=== PATIENT | female | born 1975 | race Caucasian/White ===

== ENCOUNTER → 2021-10-07 14:04 | Outpatient (BNVA) | payer MEDICAID, SELFPAY | PROVIDERS: PCP Family Medicine; Visit Provider Physician Assistant Surgical | DX: E66.01 Morbid (severe) obesity due to excess calories (principal) | CPT/HCPCS: 99202 ==

== ENCOUNTER 2021-10-26 07:43 | Outpatient (REF) | payer MEDICAID, SELFPAY ==
--- NOTE | ~2021-10-26 | XR_ITS ---
EXAMINATION: XR CHEST CLINICAL INFORMATION: Morbid to severe obesity due to excess calories COMPARISON: None TECHNIQUE: 2 views of the chest were obtained. FINDINGS: No significant abnormality is noted involving the heart, lungs, mediastinum, bony thorax or soft tissues. XR/XR chest 2V IMPRESSION: Unremarkable chest examination.
--- NOTE | 2021-10-26 07:57 | ECG_ITS ---
Test Reason : e66.01 Blood Pressure : / mmHG Vent. Rate : 067 BPM Atrial Rate : 067 BPM P-R Int : 142 ms QRS Dur : 094 ms QT Int : 404 ms P-R-T Axes : 005 009 018 degrees QTc Int : 426 ms Normal sinus rhythm Inferior-posterior infarct , age undetermined Abnormal ECG No previous ECGs available Referred By: Danial Patterson Electronically Signed By:INDY HEREDIA
[2021-10-26 08:11] LABS: MANUAL DIFF FLAG NO
[2021-10-26 08:44] LABS: Basophils Percent Auto 0.6 % (0-2); Eosinophils Absolute Auto 0.2 X10*3/uL (0.0-0.4); Eosinophils Percent Auto 3.7 % (0-4); Hematocrit 43.3 % (37.0-47.0); Hemoglobin 14.2 g/dl (12.0-16.0); Imm Gran Abs Auto 0.01 X10*3/uL (0.00-0.03); Imm Gran Pct Auto 0.2 % (0.0-0.4); Lymphocytes Absolute Auto 2.3 X10*3/uL (1.2-4.9); Lymphocytes Percent Auto 35.8 % (20-40); Mean Corpuscular HGB Conc 32.8 g/dl (31.0-35.0); Mean Corpuscular Hemoglobin 30.7 pg (27.0-33.0); Mean Corpuscular Volume 93.5 fL (80.0-98.0); Mean Platelet Volume 11.2 fL (9.4-12.3); Monocytes Absolute Auto 0.4 X10*3/uL (0.1-1.2); Monocytes Percent Auto 6.6 % (2-11); Neutrophils Absolute Auto 3.4 x10*3/uL (2.0-8.3); Neutrophils Percent Auto 53.1 % (45-73); Platelet Count 282 X10*3/uL (160-400); Red Blood Count 4.63 X10*6/uL (4.20-5.50); Red Cell Distribution Width 12.3 % (11.0-16.0); White Blood Count 6.5 X10*3/uL (4.8-10.8)
[2021-10-26 08:53] LABS: Estimated Average Glucose 120 mg/dL; Hemoglobin A1C 150.4568 umol/L; Hemoglobin A1c % 5.8 %
[2021-10-26 09:06] LABS: Alanine Aminotransferase 25 U/L (0-31); Alkaline Phosphatase 79 U/L (39-117); Anion Gap 13 (12-20); Aspartate Amino Transferase 19 U/L (5-31); Bilirubin Total 0.4 mg/dL (0.0-1.0); Blood Urea Nitrogen 14 mg/dL (9-16); C Reactive Protein 0.29 mg/dL (< or = 0.50); Calcium 9.6 mg/dL (8.4-10.2); Carbon Dioxide 29 mmol/L (22-29); Chloride 106 mmol/L (96-108); Cholesterol 242 mg/dL; Estimated Glomerular Filt Rate 54; Glucose Random 123 mg/dL (60-115); HDL Cholesterol 45 mg/dL; Iron 84 mcg/dL (30-160); LDL Cholesterol Calculated 165 mg/dl; Percent Iron Saturation 28 % (15-50); Sodium 144 mmol/L (135-145); Total Iron Binding Capacity 305 mcg/dL (228-428); Total Protein 7.2 g/dL (6.5-8.0); Triglycerides 160 mg/dL; Unsaturated Iron Binding 221 ug/dL
[2021-10-26 09:29] LABS: Ferritin 130 ng/mL (10-250); Insulin 25 uU/mL (2-29); TSH reflex Free T4 4.25 uIU/mL (0.32-4.0); Vitamin D 25-OH Total 17.5 ng/mL (>30)
[2021-10-26 10:13] LABS: Free T4 (Free Thyroxine) 0.89 ng/dL (0.71-1.85)
[2021-10-26 10:15] LABS: Folate 7.2 ng/mL (> or = 4.0); Vitamin B12 319 pg/mL (200-900)
[2021-10-27 11:57] LABS: Calcium (PTHI) 9.5 mg/dL (8.6-10.2); PTHI 50 pg/mL (16-77)
[2021-10-30 12:36] LABS: Zinc 73 mcg/dL (60-130)
[2021-10-31 17:06] LABS: Vitamin A 50 mcg/dL (38-98)
[2021-11-03 06:17] LABS: Vitamin B1 10 nmol/L (8-30)
== END 2021-10-26 07:44 | disposition home or self-care (01) ==
LOC: HO.XRAY 07:43
PROVIDERS: PCP Family Medicine; Visit Provider Physician Assistant Surgical
DX: E66.01 Morbid (severe) obesity due to excess calories (principal)
CPT/HCPCS: 36415; 71046; 80053; 80061; 82306; 82607; 82728; 82746; 83036; 83525; 83540; 83970; 84425; 84439; 84443; 84590; 84630; 85025; 86140; 93005

== ENCOUNTER → 2021-11-01 09:52 | Outpatient (BNVA) | payer MEDICAID, SELFPAY | PROVIDERS: PCP Family Medicine; Visit Provider Physician Assistant Surgical | DX: E66.01 Morbid (severe) obesity due to excess calories (principal); Z11.0 Encounter for screening for intestinal infectious diseases; Z68.41 Body mass index [BMI] 40.0-44.9, adult | CPT/HCPCS: 83013; 99211; 99212 ==

== ENCOUNTER 2021-11-01 16:41 | Outpatient (REF) | payer MEDICAID, SELFPAY ==
[2021-11-02 13:20] LABS: H Pylori Breath Test Negative (Negative)
== END 2021-11-01 16:42 | disposition home or self-care (01) ==
LOC: HO.LNP 16:41
PROVIDERS: Visit Provider Physician Assistant Surgical
DX: E66.01 Morbid (severe) obesity due to excess calories (principal)
CPT/HCPCS: 83013

== ENCOUNTER → 2021-11-09 14:02 | Outpatient (BNVA) | payer MEDICAID, SELFPAY | PROVIDERS: PCP Family Medicine; Referring Provider Physician Assistant Surgical; Visit Provider Dietitian, Registered | DX: E66.01 Morbid (severe) obesity due to excess calories (principal) | CPT/HCPCS: 97802 ==

== ENCOUNTER → 2021-11-25 13:00 | Outpatient (BNVA) | payer OTHER, SELFPAY | PROVIDERS: PCP Family Medicine; Referring Provider Physician Assistant Surgical; Visit Provider Counselor Mental Health | DX: F43.20 Adjustment disorder, unspecified (principal); E66.01 Morbid (severe) obesity due to excess calories | CPT/HCPCS: 90791 ==

== ENCOUNTER → 2021-11-26 09:09 | Outpatient (REF) | payer MEDICAID, SELFPAY ==
--- NOTE | ~2021-11-26 | NM_ITS ---
Exercise Myocardial perfusion study Indication: Abnormal EKG with preoperative cardiovascular risk stratification Technique: The patient was brought in for an exercise perfusion study on 11/26/2021. Patient performed exercise as per Dayday protocol and was injected 35 mCi of sestamibi was given intravenously one target HR was achieved. Images were obtained using the SPECT gamma camera interlaced with the gating device. Images were obtained in supine position. Resting perfusion study was performed on 11/29/2021. Patient was administered 35 mCi of sestamibi intravenously at rest. Images were then obtained in supine position. Images obtained with and without CT attenuation. Total DLP 129 mGy-cm. Images were processed with the software and compared side to side in short axis, horizontal long axis and vertical long axis views. Findings: The stress perfusion study showed non attenuated images show normal uptake of radiotracer in all segments of LV myocardium. Attenuation corrected images show minimal thinning of the apex of the LV myocardium.. The gated study shows normal LV systolic function with calculated LVEF of 68%. LV cavity is normal in size. The gated study shows normal systolic wall thickening and contraction of all segments. There is no transient ischemic dilation. Resting study shows no change in perfusion pattern compared to stress perfusion study. Gating at rest reveals normal systolic wall motion with ejection fraction at 71%. The findings are consistent with normal myocardial perfusion. NM/NM shabbir perf SPECT rest & str Impression: 1. Normal myocardial perfusion 2. Gated LVEF is 68% 3. Transient ischemic dilatation not present Stress EKG is negative for ischemia
--- NOTE | 2021-11-26 09:13 | CA_ITS ---
Acquisition Time: 2021-11-26 10:00:32 Total Exercise Time: 00:06:00 Test Indications: ABN EKG Medications: SEE CHART Protocol: ISA Max HR: 173 BPM 99% of Pred: 174 BPM Max BP: 132/080 mmHG Max Work Load: 7.0 METS Exercise stress test with exercise 6 min of Isa protocol, without anginal symptoms, with isolated PVCs, with normotensive response to exercise, without EKG changes meeting criteria for ischemia. Nuclear images pending. Test reviewed with Dr Bridges Note: test original ordered as a pharm nuclear stress test however patient reports she is able to exercise on treadmill. Test changed to exercise nuclear stress test. Referred By: Vasiliy Arango Overread By: JADON DANIEL
== END ==
LOC: HO.CARD 09:09
PROVIDERS: Visit Provider Surgery
DX: R94.31 Abnormal electrocardiogram [ECG] [EKG] (principal)
CPT/HCPCS: 78452; 93017; A9500

== ENCOUNTER 2021-12-06 08:03 | Outpatient (REF) | payer MEDICAID, SELFPAY ==
--- NOTE | ~2021-12-06 | FL_ITS ---
EXAMINATION: XR FLUOROSCOPY UPPER GI WITH AIR CLINICAL INFORMATION: Obesity COMPARISON: None TECHNIQUE: Upper GI was performed using thin and thick barium and effervescent granules. FINDINGS: Esophageal motility is normal. No hernia or reflux is seen. The stomach and duodenum are normal-appearing. No fold thickening, mass, ulcer or stricture is seen. FLUOROSCOPY TIME: 0.4 minutes DOSE AREA PRODUCT: 5.7 jacobs per centimeter squared. 19 saved fluoroscopic images. FL/FL upper GI w air IMPRESSION: Unremarkable examination.
--- NOTE | ~2021-12-06 | US_ITS ---
EXAMINATION: US COMPLETE ABDOMEN WITH LIVER ELASTOGRAPHY CLINICAL INFORMATION: Morbid obesity. COMPARISON: None. TECHNIQUE: Real-time imaging of the abdominal viscera. Noninvasive ultrasound liver fibrosis assessment is performed using Roland ElastPQ point quantification shear wave elastography (2D-SWE) with a C5-2 MHz transducer. Multiple elastography samples are obtained. FINDINGS: PANCREAS: Normal. The visualized pancreatic head and body are normal in appearance. The remainder of the pancreas is obscured from visualization by the overlying bowel gas. ABDOMINAL AORTA: The proximal, middle, and distal aortic segments are normal in caliber. INFERIOR VENA CAVA: Visualized portions are normal. LIVER: The liver demonstrates normal size, contour and is generally increased echogenicity, with pericholecystic sparing. No focal mass lesion or intrahepatic biliary duct dilatation. There are scattered benign, calcified granulomas incidentally noted. The right lobe measures 15.8 cm in length. The left lobe measures 10.4 cm in length. Portal flow is towards the liver (hepatopetal). Shear wave liver elastography median stiffness is 1.89 m/s (reference: normal median stiffness is 1.3 m/s or less). IQR/median stiffness to assess sampling precision is 0.15 (reference: good quality data set is IQR/median stiffness of 0.15 or less). GALLBLADDER: Normal. The gallbladder is physiologically distended without evidence of stones, sludge, polyps, wall thickening or pericholecystic fluid. COMMON BILE DUCT: Normal in caliber measuring 0.2 cm in diameter. RIGHT KIDNEY: Normal. No hydronephrosis. No renal calculi or focal parenchymal lesions. The kidney measures 13.0 cm in maximum dimension. LEFT KIDNEY: Normal. No hydronephrosis. No renal calculi or focal parenchymal lesions. The kidney measures 11.8 cm in maximum dimension. SPLEEN: Normal. The spleen measures 11.1 cm in maximum dimension. FREE FLUID: None. US/US abdomen comp w elastography IMPRESSION: 1. There is generalized increase in hepatic echotexture, consistent with fatty infiltration or hepatocellular disease. Please correlate clinically. Characteristic pericholecystic sparing favors fatty infiltration. No focal hepatic mass or intrahepatic biliary dilatation is seen. 2. Liver elastography: Measurements are suggestive of compensated advanced chronic liver disease but need further test for confirmation. REFERENCE: Society of Radiologists in Ultrasound Liver Stiffness Thresholds (2020): LIVER STIFFNESS THRESHOLDS: *Liver Stiffness equal or less than 1.3 m/s: High probability of being normal. *Liver Stiffness less than 1.7 m/s: In the absence of other known clinical signs, rules out compensated advanced chronic liver disease. *Liver Stiffness 1.7-2.1 m/s: Suggestive of compensated advanced chronic liver disease but need further test for confirmation. *Liver Stiffness over 2.1 m/s: Rules in compensated advanced chronic liver disease. *Liver Stiffness over 2.4 m/s: Suggestive of clinically significant portal hypertension. QUALITY OF DATA SET: *IQR/Median value equal or less than 0.15 implies a quality data set. *IQR/Median value over 0.15 implies a poor quality data set. SIGNIFICANT CHANGE FROM PRIOR EXAM: Significant change if liver stiffness measurement is 10% or greater from prior exam. OTHER CONSIDERATIONS: The stage of liver fibrosis may be overestimated in the setting of acute hepatitis, liver inflammation, elevated liver function tests, hepatic vascular congestion, obstructive cholestasis, non-fasting state, and infiltrative diseases such as amyloidosis and lymphoma. In some patients with NAFLD, the liver stiffness thresholds for compensated advanced chronic liver disease may be lower. In causes other than viral hepatitis and NAFLD, liver stiffness thresholds are not well established.
== END 2021-12-06 08:04 | disposition home or self-care (01) ==
LOC: HO.US 08:03
PROVIDERS: Visit Provider Physician Assistant Surgical
DX: E66.01 Morbid (severe) obesity due to excess calories (principal)
CPT/HCPCS: 74246; 76705; 76981

== ENCOUNTER → 2021-12-22 14:23 | Outpatient (REF) | payer MEDICAID, SELFPAY ==
--- NOTE | 2021-12-22 14:25 | CA_ITS ---
Transthoracic Echocardiogram Patient (Last, First, Middle): Hoda Delarosa L Gender: Female Date of : 1975 Age: 46 Procedure Date: 12/22/2021 Procedure Type: Transthoracic Echocardiogram Location: OP Height: 162.56 cm Weight: 103.87 kg BSA: 2.07 m2 Heart Rate: 74 bpm BP: 168 / 80 mmHg Process Control Tech: SB Referring MD: Vasiliy Arango MD Symptoms: R94.31 - Abnormal electrocardiogram [ECG] [EKG] Study Quality: Adequate w contrast ECG Rhythm: Sinus Conclusions: - The left ventricular systolic function is normal. The visually estimated ejection fraction is between 55-60%. - No obvious valvular pathology seen on this study. Findings Procedure Information Contrast agent, definity, is being given per protocol without apparent complications. Left Ventricle Normal left ventricular cavity size. There is normal left ventricular wall thickness. The left ventricular systolic function is normal. The visually estimated ejection fraction is between 55-60%. There is no evidence of regional wall motion abnormalities. Diastolic function is normal for age. Right Ventricle Normal right ventricular cavity size. There is low normal right ventricular systolic function. Atria Both atria are normal in size. Aortic Valve There is a normal trileaflet aortic valve. There is no aortic valve stenosis. There is no aortic valve regurgitation. Mitral Valve The mitral valve appears normal. There is no mitral valve regurgitation. There is no mitral valve stenosis. Pulmonic Valve The pulmonic valve is likely normal. Tricuspid Valve There is trace tricuspid valve regurgitation. There is no evidence of pulmonary hypertension. Great Vessels The asc aorta is normal in size. Venous The inferior vena cava is normal in size and collapses greater than 50% with inspiration. Pericardium/Pleural There is no evidence of pericardial effusion. Prior Study Comparison No prior study available for comparison. Recommendations, Care & Conclusions No obvious valvular pathology seen on this study. Measurements 2D Linear Measurements IVSd: 1.03 0.6-0.9/0.6-1.0 cm LVIDd: 4.62 3.9-5.3/4.2-5.9 cm LVIDd Index: 2.23 2.4-3.2/2.2-3.1 cm/m2 LVIDs: 2.78 2.0-3.6 cm LVPWd: 1.02 0.7-1.1 cm LA Diam: 4.00 2.7-3.8/3.0-4.0 cm LAIDs Index: 1.93 1.5-2.3 cm/m2 LV Mass: 206.06 67-162/88-224 g LV Mass Index: 99.54 43-95/49-115 g/m2 LVOT Diam: 2.10 3.0+(-)1.3 cm 2D Systolic Function EF 4C: 58.80 >55% EF 2C: 57.90 >55% EF BiP: 58.20 >55% Mitral Valve MV Pk E: 0.74 MV PK A: 0.55 MV Decel Time: 129.00 E/A: 1.40 E'Lateral: 9.68 E'Medial: 7.07 E/E' Med: 10.50 E/E' Lat: 7.70 PHT: 38.00 MVA PHT: 5.79 Decel [place]: 5.75 Aortic Valve AoV Pk Skyler: 1.27 AoV Mn Skyler: 0.96 AoV VTI: 0.27 AoV Pk Grad: 6.00 Aov Mn Grad: 4.00 [place] Cont.VTI: 3.00 LVOT LVOT Pk Skyler: 1.19 LVOT Mn Skyler: 0.81 LVOT VTI: 0.24 LVOT Pk Grad: 6.00 LVOT Mn Grad: 3.00 LVOT Diam: 2.10 LVOT Area: 3.46 Diastolic Function MV Pk E: 0.74 MV Pk A: 0.55 E/A: 1.40 E'Medial: 7.07 E/E' Med: 10.50 E' Laterial: 9.68 E/E' Lat: 7.70 Right Ventricle TAPSE (mm): 15.30 TVS' Skyler: 12.30 Tricuspid Valve TR Pk Skyler: 2.24 TR Pk Grad: 20.00 RA Press: 3.00 RVSP: 23.00 Great Vessels Aorta Sinus of Valsalva: 3.30 2.0-3.5 cm Ao Asc: 3.60 2.1-3.4 cm Pulmonary Veins Pulm Vein S/D 1.10 Pulmonary Valve PV Pk Skyler: 0.80 Peak PV Grad: 3.00 Updated in Other Vendor System with Status of Final Jone Tompkins MD electronically signed on 12/23/2021 11:41:26 AM with status of Final
== END ==
LOC: HO.CARD 14:23
PROVIDERS: Visit Provider Surgery
DX: Z01.818 Encounter for other preprocedural examination (principal); R94.31 Abnormal electrocardiogram [ECG] [EKG]
CPT/HCPCS: 93306; Q9957

== ENCOUNTER 2022-01-11 06:07 | Inpatient (IN) | payer MEDICAID, SELFPAY ==
[2022-01-05 10:37] VITALS: BMI 41.0
[2022-01-07 12:34] LABS: MANUAL DIFF FLAG NO
[2022-01-07 12:55] LABS: INTERNATIONAL NORM RATIO 1.1 (0.9-1.1); Prothrombin Time 12.1 SEC (10.0-13.1)
[2022-01-07 12:58] LABS: Partial Thromboplastin Time 34.2 SEC (26.0-36.4)
[2022-01-07 12:59] LABS: Estimated Average Glucose 114 mg/dL; Hemoglobin A1c % 5.6 %
[2022-01-07 13:28] LABS: Alanine Aminotransferase 21 U/L (0-31); Albumin Level 4.3 g/dL (3.5-5.0); Alkaline Phosphatase 73 U/L (39-117); Anion Gap 20 (12-20); Aspartate Amino Transferase 22 U/L (5-31); Bilirubin Total 0.8 mg/dL (0.0-1.0); Blood Urea Nitrogen 13 mg/dL (9-16); C Reactive Protein 0.55 mg/dL (< or = 0.50); Carbon Dioxide 23 mmol/L (22-29); Chloride 103 mmol/L (96-108); Cholesterol 167 mg/dL; Creatinine Clr Calc Pharmacy 92.8; Estimated Glomerular Filt Rate > 60; Glucose Random 80 mg/dL (60-115); HDL Cholesterol 42 mg/dL; LDL Cholesterol Calculated 104 mg/dl; Sodium 142 mmol/L (135-145); Total Protein 7.4 g/dL (6.5-8.0); Triglycerides 105 mg/dL
[2022-01-07 13:49] LABS: Insulin 17 uU/mL (2-29); TSH reflex Free T4 3.04 uIU/mL (0.32-4.0)
[2022-01-07 13:55] LABS: Basophils Percent Auto 0.5 % (0-2); Eosinophils Absolute Auto 0.2 X10*3/uL (0.0-0.4); Eosinophils Percent Auto 1.8 % (0-4); Hematocrit 42.5 % (37.0-47.0); Imm Gran Abs Auto 0.03 X10*3/uL (0.00-0.03); Imm Gran Pct Auto 0.3 % (0.0-0.4); Lymphocytes Absolute Auto 1.7 X10*3/uL (1.2-4.9); Mean Corpuscular HGB Conc 35.3 g/dl (31.0-35.0); Mean Corpuscular Hemoglobin 31.6 pg (27.0-33.0); Mean Corpuscular Volume 89.7 fL (80.0-98.0); Mean Platelet Volume 12.1 fL (9.4-12.3); Monocytes Absolute Auto 0.5 X10*3/uL (0.1-1.2); Monocytes Percent Auto 5.2 % (2-11); Neutrophils Absolute Auto 6.2 x10*3/uL (2.0-8.3); Neutrophils Percent Auto 72.2 % (45-73); Platelet Count 272 X10*3/uL (160-400); Red Blood Count 4.74 X10*6/uL (4.20-5.50); White Blood Count 8.7 X10*3/uL (4.8-10.8)
--- NOTE | 2022-01-10 09:59 | P.CONAN_ITS ---
Documented by User: Malgorzata Mcgarry NP 01/10/22 10:01 HPI - Anesthesia Eval Consult details Narrative: 46yo F for Gastrectomy Sleeve,EGD,poss diaphragmatic hernia,poss ventral hernia,poss open, PMFSH Active Problems Active Problems: All Active Problems (Updated 01/05/22 @ 11:50 by Josie Gonzalez RN) Morbid obesity (Acute) ARNIE (obstructive sleep apnea) (Acute) Asthma (Acute) Abnormal EKG (Acute) Vitamin B12 deficiency (Acute) Hypothyroidism (Acute) Hyperlipidemia (Acute) Abnormal EKG (Acute) Adjustment disorder, unspecified (Acute) Obesity (Acute) BMI 39.0-39.9,adult (Acute) BMI 38.0-38.9,adult (Acute) Past Medical History Medical History Asthma History of COVID-19 Hx of tendinitis Hypothyroid ARNIE (obstructive sleep apnea) Family History Family History Mother COPD (chronic obstructive pulmonary disease) Asthma Hypertension Father No problems noted. Son No problems noted. Son No problems noted. Son No problems noted. Daughter Asthma Daughter Cancer Thyroid condition Daughter No problems noted. Surgical History Surgical History History of endometrial ablation Hx of carpal tunnel repair Hx of section Hx of tubal ligation Status post debridement of bone spur Social History Social History Are you a primary personal care service provider to a significant other at home: No Do you presently have visiting nurse or other home services: No Alcohol intake: current Alcohol intake frequency: does not drink Patient Tobacco Use Status: Never used Tobacco Use of substances other than those prescribed or required for medical reasons: No Have you been hit, kicked, punched, or otherwise hurt by someone within the past year? If so, by whom?: No Are you DNR?: No Advance Directives: No Advance Directives Information Provided: Yes (Mailed w/ preop instructions) Advance Directives on File: No Recently lost weight without trying: No How much weight loss: 14-23 pounds Eating poorly because of decreased appetite: No Nutrition screen score: 2 Nutrition Risks: No Nutritional Risk Patient : No FDLMP: Endometrial ablation : No Poor oral hygiene: No Meds Allergies Allergy/AdvReac Type Severity Reaction Status Date / Time No Known Allergies Allergy Verified 01/05/22 10:37 Exam Exam Date and Time: January 10, 2022 0959 Height,Weight and Vital Signs: Height 5 ft 4 in Weight 108.318 kg Pertinent Lab Results Pertinent Lab Results: Laboratory Tests 01/07/22 01/07/22 01/07/22 12:33 12:33 12:33 WBC 8.7 RBC 4.74 Hgb 15.0 Hct 42.5 MCV 89.7 MCH 31.6 MCHC 35.3 H RDW 12.0 Plt Count 272 MPV 12.1 Immature Gran % (Auto) 0.3 Neut % (Auto) 72.2 Lymph % (Auto) 20.0 [place] % (Auto) 5.2 Eos % (Auto) 1.8 Baso % (Auto) 0.5 Lymph # (Auto) 1.7 [place] # (Auto) 0.5 Eos # (Auto) 0.2 Baso # (Auto) 0.0 Abs Immat Gran (auto) 0.03 Absolute Neuts (auto) 6.2 Absolute Nucleated RBC 0.000 Nucleated RBC % (auto) 0.0 PT 12.1 INR 1.1 APTT 34.2 Sodium 142 Potassium 4.0 Chloride 103 Carbon Dioxide 23 Anion Gap 20 BUN 13 Creatinine 0.91 Estim Creat Clear Calc 92.8 Estimated GFR > 60 Random Glucose 80 Estimat Average Glucose Hemoglobin A1c % Insulin Level 17 Calcium 10.0 Total Bilirubin 0.8 AST 22 ALT 21 Alkaline Phosphatase 73 C-Reactive Protein 0.55 H Total Protein 7.4 Albumin 4.3 Triglycerides 105 Cholesterol 167 D LDL Cholesterol, Calc 104 HDL Cholesterol 42 TSH 3.04 Blood Type Antibody Screen 01/07/22 01/07/22 12:33 15:05 WBC RBC Hgb Hct MCV MCH MCHC RDW Plt Count MPV Immature Gran % (Auto) Neut % (Auto) Lymph % (Auto) [facility] % (Auto) Eos % (Auto) Baso % (Auto) Lymph # (Auto) [facility] # (Auto) Eos # (Auto) Baso # (Auto) Abs Immat Gran (auto) Absolute Neuts (auto) Absolute Nucleated RBC Nucleated RBC % (auto) PT INR APTT Sodium Potassium Chloride Carbon Dioxide Anion Gap BUN Creatinine Estim Creat Clear Calc Estimated GFR Random Glucose Estimat Average Glucose 114 Hemoglobin A1c % 5.6 Insulin Level Calcium Total Bilirubin AST ALT Alkaline Phosphatase C-Reactive Protein Total Protein Albumin Triglycerides Cholesterol LDL Cholesterol, Calc HDL Cholesterol TSH Blood Type O Negative Antibody Screen NEGATIVE Narrative Narrative: EKG 10/2021 Vent. Rate : 067 BPM ? ? Atrial Rate : 067 BPM ?? P-R Int : 142 ms? QRS Dur : 094 ms ? ? QT Int : 404 ms ? ? ? P-R-T Axes : 005 009 018 degrees ?? QTc Int : 426 ms ? Normal sinus rhythm Inferior-posterior infarct , age undetermined Abnormal ECG No previous ECGs available ECHO 12/2021 Conclusions: - The left ventricular systolic function is normal.? The visually estimated ejection fraction is between 55-60%. ? - No obvious valvular pathology seen on this study.? NM shabbir perf SPECT rest & str 11/2021 Impression: ? 1.? Normal myocardial perfusion 2.? Gated LVEF is 68% 3. Transient ischemic dilatation not present ? Stress EKG is negative for ischemia Assessment and Plan Assessment Anesthesia Assessment: Chart Reviewed Documented by User: Mauri Barragan MD 01/11/22 07:13 PMFSH Past Medical History Medical History Asthma History of COVID-19 Hx of tendinitis Hypothyroid ARNIE (obstructive sleep apnea) Family History Family History Mother COPD (chronic obstructive pulmonary disease) Asthma Hypertension Father No problems noted. Son No problems noted. Son No problems noted. Son No problems noted. Daughter Asthma Daughter Cancer Thyroid condition Daughter No problems noted. Family history of problems with anesthesia: No Surgical History Surgical History History of endometrial ablation Hx of carpal tunnel repair Hx of section Hx of tubal ligation Status post debridement of bone spur History of Problems with Anesthesia: No Social History Social History Are you a primary personal care service provider to a significant other at home: No Do you presently have visiting nurse or other home services: No Alcohol intake: current Alcohol intake frequency: does not drink Patient Tobacco Use Status: Never used Tobacco Use of substances other than those prescribed or required for medical reasons: No Have you been hit, kicked, punched, or otherwise hurt by someone within the past year? If so, by whom?: No Are you DNR?: No Advance Directives: No Advance Directives Information Provided: Yes (Mailed w/ preop instructions) Advance Directives on File: No Recently lost weight without trying: No How much weight loss: 14-23 pounds Eating poorly because of decreased appetite: No Nutrition screen score: 2 Nutrition Risks: No Nutritional Risk Patient : No FDLMP: Endometrial ablation : No Poor oral hygiene: No Meds Allergies Allergy/AdvReac Type Severity Reaction Status Date / Time No Known Allergies Allergy Verified 01/05/22 10:37 Exam Airway Mallampati Class: III TM Dist: >3cm Neck ROM: Full Loose/Missing/Broken Teeth: No Heart: [id number] Lungs: cta b/l Assessment and Plan Assessment Anesthesia Assessment: Anesthesia Plan Discussed Final Anesthetic Review Family History of Problems with Anesthesia: No History of Problems with Anesthesia: No NPO: Yes ASA Class: III Final Preanesthetic Review: No Changes in Pt Med Stat, Meds/Allgs Chart Reviewed, Consent Obtained/Reviewed and Anes Risks/Benef Reviewed Patient Risk: Intermediate Procedure Risk: Intermediate Assessment/Block/Sedation in SS: Assess/Block/Sedation-SS Anesthetic Plan Anesthetic Plan: GA and Agree w/ Assess. and Plan Disposition: Standard PACU
[2022-01-10 13:16] LABS: COVID-19 Test Negative (Negative)
--- NOTE | 2022-01-10 17:19 | MHC.SHP ---
Pre-Procedural Eval Section A Date of Service: 01/10/22 The patient is an INPATIENT: Yes The History & Physical has been completed within 30 days and I have reviewed it.: Yes Section B Chief Complaint: obesity Relevant Family History (Specify if Yes): No Relevant Social History: None Present Medications: None Medical History: No relevant PMH History of Previous Operations: No relevant previous surgery Allergies: Allergies Allergy/AdvReac Type Severity Reaction Status Date / Time No Known Allergies Allergy Verified 01/05/22 10:37 Review of Systems Sugical H&P ROS: Negative: Constitution, Cardiovascular, Respiratory, Neurological, Psychiatric, Hem-Onc, Allergic/Immunologic, Gastrointestinal, Genitourinary, Musculoskeletal, Integumentary, Endocrine and Eyes/Ears/Nose/Throat Exam Surgical H&P Exam: Normal: HEENT, Normal: Heart, Normal: Lungs, Normal: Extremities, Normal: Abdomen, Normal: Skin and Normal: Neurological Plan Diagnosis/Plan: Unchanged I have reviewed the history and physical and performed a pertinent physical examination on my patient. No changes have occurred unless specified.
[2022-01-11] VITALS (13 sets, daily range): BP systolic 136–162; BP diastolic 84–98; PULSE 78–89; RESP 12–18; TEMP 36.2–36.9; O2SAT 91–99
[2022-01-11] MEDS: Lactated Ringers 1,000 ML 999 ML IV (06:32)
--- NOTE | 2022-01-11 07:38 | PM.OP ---
Brief Operative Note Date of Service: 01/11/22 Pre-op diagnosis: Morbid obesity and comorbidities (see below) Post-op diagnosis: same (moderate size diaphragmatic hernia) Procedure: INITIAL PATIENT BMI ON PRESENTATION AT OUR OFFICE: 44.5 kg/m2 LAST BMI BEFORE SURGERY: 40.7 kg/m2 COMORBIDITIES: sleep apnea, hypothyroidism, hyperlipidemia, liver steatosis, liver fibrosis ?The patient presented to the Weight Management Program with significant obesity that was negatively impacting the patient's comorbidities as listed above.? The program is a phased program with a special focus on preoperative medical weight management to promote substantial weight loss and prepare the patients for the second phase of the program: bariatric surgery. The patient participated in an intensive weekly lifestyle ?intervention and exercise program during which the patient ?has lost between the initial office visit and the last preoperative visit 22.3lbs, or 8.59% of initial actual body weight. It was deemed appropriate for the patient to now have bariatric surgery. In light of the current Covid-19 pandemic and the well documented strong association of obesity and increased risk of worse outcomes if infected with Covid-19 (REFERENCES:https://pubmed.ncbi.nlm.nih.gov/06732512/,?https://pubmed.ncbi.nlm.nih.gov/17328329/), any delay in undergoing bariatric surgery may lead to the patient's worsening health condition and increased?risk of more severe Covid-19 disease if infected. In addition a recent?study from [facility] published in [facility] on 03/08/2021 ([email or web address]) found that, among patients with obesity, substantial weight loss achieved with surgery was associated with improved outcomes of COVID-19 infection. The findings suggest that obesity can be a modifiable risk factor for the severity of COVID-19 infection. In addition, the patient met the BMI-criteria for bariatric surgery based on the BMI on initial presentation. The patient should not be penalized for achieving such weight loss because ?it is not sustainable long-term without surgical intervention and it was achieved in preparation for bariatric surgery ?under my direction and based on my published research ([email or web address]).[email or web address] and?[email or web address].[email or web address]/[email or web address])[email or web address]/pdf) ?that a 10% preoperative weight loss improves long-term weight loss after surgery and reduces perioperative complications.? Insurance carriers such as [facility] have endorsed my recommendations ?and have included in their policies criteria to include a 10% preoperative weight loss requirement. PROCEDURE: Esophago-gastroscopy, laparoscopic repair of incarcerated diaphragmatic hernia, laparoscopic sleeve gastrectomy and laparoscopic gastropexy INDICATIONS: This is a 46 year-old female who was electively scheduled for laparoscopic, possibly open sleeve gastrectomy. The risks and complications of the procedure were discussed with the patient in advance, particularly the possibility of ; pulmonary embolism; staple line leak; bleeding; GERD; cardiac, pulmonary, or renal complications; as well as long-term problems such as insufficient weight loss, vitamin deficiency, strictures, or ulcers. The patient understood all the risks, and was in agreement to proceed with surgery. DESCRIPTION OF PROCEDURE: After informed consent was obtained from the patient, the patient was given preoperative antibiotics, and was transferred to the operating room. After successful induction of general anesthesia, pneumatic compression devices were placed on both lower extremities. An upper endoscopy was performed next. The oropharynx and esophagus appeared to be within normal limits. There was a diaphragmatic hernia present of moderate size that was not reported at the preoperative upper GI. The stomach was entered. Then after all fluid and air were suctioned and the stomach was fully decompressed, the scope was withdrawn and secured in the mid esophagus. The patient was then prepped and draped in the usual sterile manner, and abdominal access was established at the right upper quadrant with the Isidro technique. A 12 mm blunt port was inserted, and the abdomen was insufflated with CO2 to a pressure of 15 mmHg. Under direct visualization, additional ports were placed, specifically two 5 mm Versi-step ports to the left upper quadrant, and a 5 mm Versi-Step port to the right upper quadrant. 1% lidocaine plain was used to infiltrate all port sites as well as all fascia defects. Using the EndoClose suture passer device, I placed a #1 Polysorb tie across the falciform ligament in order to retract it up against the abdominal wall and prevent injury of the ligament with our instruments during the procedure. Following that, the patient was placed in a steep reverse Trendelenburg position. An additional 5 mm port was placed to the right flank for the Mediflex retractor that was used to retract the left lobe of the liver. The gastro-esophageal fat pad was opened with the ultrasonic device (Thunderbeat, Olympus) and the anterior esophagus and hiatus were exposed. The angle of His was opened with the ultrasonic device the fundus of the stomach from any diaphragmatic and splenic attachments. I then opened the gastrocolic ligament between the transverse colon and the greater curvature of the stomach with the ultrasonic device to enter the lesser sac and facilitate the ligation of the short gastric vessels. I started at a mid-point along the greater curvature and using the Thunderbeat, all short gastric vessels were divided all the way to the angle of His until the left rosa m was completely dissected at its entirety. I then divided the gastro-colic ligament distally to a distance of about 3-4 cm proximal to the pylorus. The patient had a very large gastric fundus with several posterior attachments that made dissection very difficult. There was an obvious significant-sized hiatal hernia. I continued dissecting along the hiatus toward the left rosa m and the angle of His. I fully mobilized the fat pad that was incarcerated in the hernia. I then continued by dissecting even further into the posterior retro-esophageal space all the way to the angle of His. I continued to mobilize the esophagus into the mediastinum circumferentially. Both vagal nerves were seen and preserved. At that point, I was able to have at least 3 to 5 cm of esophagus into the abdomen.? After I completely mobilized the esophagus from both the left and right rosa m and I had a good mobilization of the esophagus circumferentially, I closed the hernia defect with three interrupted #0 Surgidac sutures using the Endo Stitch device, one of which was placed posterior and two of which anterior to the esophagus. Dissection of the hiatus was very difficult because there were two large vessels near the right rosa m that made dissection and exposure very challenging. However, both vessels were preserved.? The stomach was then divided transversely with one Endo ASH-45 purple, one ASH-45 orange load, three ASH-60 purple loads and one ASH-60 articulating orange load using the AEON stapler and loads. Every effort was made that the gastric sleeve had a tubular shape and an even caliber throughout. Once the sleeve resection was completed, the staple line of the gastric sleeve was reinforced with Hemoclips. The resected stomach was retrieved without difficulty from the Isidro port. A gastropexy was then performed in order to prevent postoperative GERD and partial gastric volvulus. Several interrupted 2.0 Surgidac sutures were placed between the sleeve's staple line and the previously divided greater omentum and gastro-colic ligament using the Endo-Stitch device. ?An upper endoscopy was performed. There was no narrowing at the GE junction. The scope was easily advanced all the way to the pylorus which was clearly visualized. There was no narrowing anywhere and the sleeve's caliber was even throughout. The sleeve's staple line was inspected and there was no evidence of ischemia, bleeding or dehiscence. At that point the gastroscope was withdrawn from the patient?s mouth while we were decompressing the bowel and the stomach from any remaining air. I looked into the lesser sac to see how the sleeve was situating and it was situating well. There was no bleeding from the staple line, spleen, or short gastric vessels. The Mediflex retractor was removed, and the undersurface of the liver was inspected and there was no bleeding. The patient was placed in supine position. I closed the fascial defect of the 12 mm port site with a figure of eight #1 Polysorb suture. Then 30cc of Ropivacaine plain with 10 mg of Dexamethasone were used to infiltrate the fascial closure as well as all skin incisions. A total of 7ml of Zynrelef was applied in the Isidro wound. At this point, the abdomen was deflated, all ports were removed under direct vision, and no bleeding was noted from any of the port sites. The skin incisions were irrigated with saline and were closed with 4-0 absorbable monofilament sutures. Steri-Strips and OpSites were used to cover all incisions. The patient was extubated and was transferred in stable condition to the recovery room for further care. I was present and performed all noguera parts of the procedure. Ms. Canales was the presser first. There were no residents to assist with this case. Greg Arango MD, PhD, FACS Surgeon: Vasiliy Arango MD Anesthesia: GETA, local and other (TAP block and 7ml Zynrelef) Was an Nude Model used for this Procedure?: Yes Nude Model: Michelle Canales Estimated blood loss (mL): 10 IV fluids (mL): 3,000 Urine output (mL): 0 (No Crisostomo to record) Pathology: other (Stomach) Condition: stable Disposition: PACU
--- NOTE | 2022-01-11 07:40 | P.PNGS_ITS ---
Subjective Subjective Date of Service: 01/12/22 Interval history: Patient has mild incisional pain, but was able to ambulate and use the incentive spirometer. She is tolerating phase 1 bariatric diet Physical Exam Vital Signs: Vital Signs: Last Vital Signs Temp 97.4 F 01/11/22 06:13 Pulse 82 01/11/22 06:13 Resp 16 01/11/22 06:13 BP 150/91 H 01/11/22 06:13 Pulse Ox 96 01/11/22 06:13 O2 Del Method 01/11/22 06:13 BMI result Body Mass Index 41.0 GI: Inspection: Yes normal to inspection, Yes incision (clean, dry and intact) and Yes obesity Palpation (GI): Soft to palpation Extrem: Right lower extremity: normal to inspection (no calf tenderness) Left lower extremity: normal to inspection (no calf tenderness) Objective Data Active Medications Albuterol Sulfate (Albuterol Sulfate (0.083%) 2.5 Mg/3 Ml Vial.Neb) 2.5 mg INHALE ONCE PRN PRN Reason: Shortness of Breath/Wheezing Fentanyl (Fentanyl Citrate/Pf 100 Mcg/2 Ml Vial) 50 mcg IVPUSH Q5M PRN; Protocol PRN Reason: Pain, Moderate (Pain Scale 4-6 Hydromorphone HCl (Hydromorphone Hcl 0.5 Mg/0.5 Ml Syringe) 0.5 mg IVPUSH Q5M PRN; Protocol PRN Reason: Pain, Severe (Pain Scale 7-10) Lactated Ringer's (Lr) 1,000 mls @ 100 mls/hr IVCONT .Q10H [facility] Lactated Ringer's (Lr) 1,000 mls @ 999 mls/hr IV .Q1H1M [facility] Stop: 01/11/22 08:15 Last Admin: 01/11/22 06:32 Dose: 999 mls/hr Documented By: WOJCIECH Promethazine HCl 12.5 mg/ (Sodium Chloride) 50.5 mls @ 202 mls/hr IV ONCE PRN PRN Reason: Nausea and Vomiting Ondansetron HCl (Ondansetron Hcl 4 Mg/2 Ml Vial) 4 mg IVPUSH ONCE PRN PRN Reason: Nausea and Vomiting Labs CBC & Chem 7: 01/12/22 05:49 01/12/22 05:50 Labs: Laboratory Results - last 24 hr 10/31/22 12:15 COVID-19 ([facility]) Negative COVID-19 Clin Com See Note Procedures Date of Service Date of Service: 01/12/22 Progress Note: A&P Assessment and plan (1) Morbid obesity: Status: Acute Assessment and Plan: s/p laparoscopic sleeve gastrectomy, repair of diaphragmatic hernia, and gastropexy Doing well Check am labs. If OK, will discharge home? (2) ARNIE (obstructive sleep apnea): Status: Acute (3) Asthma: Status: Acute (4) Hypothyroidism: Status: Acute (5) Hyperlipidemia: Status: Acute (6) Steatosis, liver: Status: Acute (7) Liver fibrosis: Status: Acute (8) Status post sleeve gastrectomy: Status: Acute (9) History of repair of hiatal hernia: Status: Acute (10) Hiatal hernia: Status: Acute Time Spent With Patient Time: Total time spent is greater than 50% in coordination of care (as documented) at patient's floor/unit and/or counseling patient: Quality Stroke Does the patient have a stroke diagnosis?: No VTE Prior VTE?: No VTE Risk Level:: Surgical - moderate VTE Device Contraindication: N/A - Device Ordered VTE Drug Contraindication: Treatment Not Indicated
--- NOTE | 2022-01-11 10:56 | P.DS_ITS ---
DS: Providers Provider Date of Service: 01/12/22 Date of admission: 01/11/22 06:07 Primary care physician: Ronnie Jarrett MD DS: Diagnosis Discharge Diagnosis (1) Morbid obesity: Status: Acute (2) ARNIE (obstructive sleep apnea): Status: Acute (3) Asthma: Status: Acute (4) Hypothyroidism: Status: Acute (5) Hyperlipidemia: Status: Acute (6) Steatosis, liver: Status: Acute (7) Liver fibrosis: Status: Acute DS: Summary Hospital Course Hospital Course: ADMITTING DIAGNOSIS: morbid obesity, hypothyroidism, hyperlipidemia, ARNIE DISCHARGE DIAGNOSIS: same, s/p laparoscopic sleeve gastrectomy and repair diaphragmatic hernia PAST SURGICAL HISTORY: section and tubal ligation PROCEDURE: upper endoscopy, laparoscopic sleeve gastrectomy and repair of diaphragmatic hernia hernia DISCHARGE SUMMARY: History of Present Illness: The patient is a 46 year-old woman with a BMI of 44.5 kg/m2 and associated co- morbidities as described above. The patient had extensive work-up,lost 34.9lbs preoperatively and was electively scheduled for laparoscopic, possible open sleeve gastrectomy and gastropexy. Risks and complications of the surgery were discussed with the patient in advance, particularly the possibility of , pulmonary embolism, anastomotic leak, bleeding, bowel injury, GERD, cardiac, renal or pulmonary complications. The patient understood all the risks and was in agreement with the surgical plan. Hospital Course: The patient underwent an uneventful laparoscopic sleeve gastrectomy with gastropexy and repair of diaphragmatic hernia on the day of admission. Postoperatively, the patient was transferred to the surgical floor. The patient received IV Acetaminophen and IV dilaudid for pain control. Patient was started on bariatric phase 1 diet POD #0. On postoperative day one, the patient was feeling well without nausea, vomiting, fevers, or tachycardia. The patient had some mild incisional pain and the abdomen was soft. On the morning of postoperative day one, the patient was continued on 1 ounce of water or ice every half hour. During the day, the patient did fairly well, having some incisional pain, but able to ambulate adequately and to tolerate liquids well. Since the patient is doing well, we decided that the patient was ready to be discharged. The patient was given instructions to follow-up with me next week and to call my office for any fever over 101, persistent abdominal pain, nausea, vomiting, GERD, symptoms of DVT such as calf tenderness, or leg swelling, or pulmonary embolism such as chest pain or shortness of breath. The patient was also instructed to drink 40-60 ounces of liquids per day using the 1-ounce cups. The patient had been given prescriptions for Tylenol for pain, Zofran prn for nausea, and pantoprazole and carafate previously. The patient was encouraged to ambulate and use the incentive spirometer. The patient was allowed to shower, but no baths, and encouraged to stay active at home. All of these instructions were given to the patient personally. All questions were answered and the patient understood all instructions, the instructions were also given to the patient in print. Time Spent with Patient Time attestation: Total time spent providing and/or coordinating discharge services: Discharge coordination time: Less than 30 minutes Quality: Safe Use of Opioids Does Pt have an Active Cancer Diagnosis on the Problem List?: No Quality: Stroke Does the patient have a stroke diagnosis?: No Physical Exam Vital Signs: Vital Signs: Last Vital Signs Temp 97.4 F 01/11/22 06:13 Pulse 82 01/11/22 06:13 Resp 16 01/11/22 06:13 BP 150/91 H 01/11/22 06:13 Pulse Ox 96 01/11/22 06:13 O2 Del Method 01/11/22 06:13 BMI result Body Mass Index 41.0 DS: Data Data Completed and Pending Pending studies at discharge: Pending at discharge 01/11/22 09:53 Surgical [PTH] Routine Labs on day of discharge: Laboratory Results - last 24 hr 01/10/22 12:15 COVID-19 ([facility]) Negative COVID-19 Clin Com See Note Discharge Plan Discharge Anticipated Discharge Date/Time: 01/12/22 10:52 Patient Disposition: Home, Self-Care Discharge Diagnosis: s/p sleeve gastrectomy and hiatal hernia repair Referrals: Ronnie Jarrett MD [Primary Care Provider] - 1 Week Discharge Medications: Continued levothyroxine 25 mcg capsule 25 mcg PO DAILY Qty: 30 2RF pantoprazole 40 mg tablet,delayed release (DR/EC) 40 mg PO DAILY Qty: 30 2RF sucralfate 100 mg/mL suspension 10 ml PO BID Qty: 400 2RF ondansetron HCl 4 mg tablet 4 mg PO Q12H Qty: 20 0RF Held atorvastatin 10 mg tablet 10 mg PO DAILY Qty: 30 2RF Hold Instructions: Discuss start with Dr Conchita Leong cholecalciferol (vitamin D3) 125 mcg (5,000 unit) capsule 125 mcg PO DAILY Qty: 30 3RF mecobalamin (vitamin B12) 1,000 mcg tablet,disintegrating 1 tab sublingual DAILY Discharge Orders: Discharge Order (Routine); Ordered 01/12/22 Ordered By: Danial Patterson Activity on Discharge: No heavy lifting Stand Alone Forms: Patient Portal Discharge page Care Plan Goals: weight loss Health Concerns: morbid obesity Plan of Treatment: No tub baths, sex or returning to work until discussed at first post op appointment. No exercise, alcohol, tobacco or illegal drug use. Continue to use incentive spirometer hourly while awake. Walk in home for 5- 10 minutes every 2 hours during the first week. Continue phase 1 diet today and start phase 2 diet tomorrow morning. Follow all instructions in the bariatric handbook and call with any questions. 1. Please call your doctor or come back to the emergency room should any new symptoms arise. 2. You will receive a courtesy call from [facility] 24-48 hours after discharge. 3. Activity: abstain from alcohol, practice limited stair climbing, no bending, no driving, no exercise, no illicit substances, no lifting, no sex, no tub bath, no work. 4. Diet: continue as discussed with bariatric team.. 5. Dressing Change/Wound Care: Do not change or remove surgical dressings unless they are wet or soiled. 6. Call your doctor if: - Your temperature exceeds 101.5 F - You experience excessive pain or swelling - You have an unexpected reaction to medication - You have excessive bleeding - You experience continued vomiting/nausea - Your incision begins to separate - Your incision shows signs of infection such as increased redness, swelling, excessive pain, heat, or drainage (light blood or clear fluid is normal) 7. General instructions: No lifting greater than 5 lbs for the next 4 weeks[address] driving within 24 hours of taking narcotic pain medications. If you do not move your bowels in the next 2 days, please take milk of magnesia over the counter. Please follow the post op diet and do not advance your diet until you are seen in the office in about 2 weeks. Please walk around your home every hour or two to prevent blood clots from forming in your legs. You do not need to wake from sleeping to walk. Please sleep in a bed or couch to prevent kinking at the hips and knees. Please take your incentive spirometer (your lung linoleum mechanic) home with you and use it for the next few days to prevent pneumonias. You may shower, no hot tubs, baths or swimming pools. Please call the office with any questions or concerns such as increasing abdominal pain, fever, chills, shortness of breath, chest pain, leg pain or swelling, or redness or drainage from your incisions. Do not hesitate to contact the office with any questions at . The patient's medical history has been reviewed and they are considered low risk for post op DVT and therefore DVT prophylaxis is not considered necessary. Travel after surgery was reviewed. The patient has not disclosed any travel plans during the first 30 days after surgery and they have been advised that within the first 30 days after surgery any bus, plane, train or car travel over 2 hours in duration is contraindicated due to the possibility of developing blood clots from immobility. Any travel, needs to include periods of ambulation of 10 minutes in duration every 2 hours. The patient was instructed to discuss any plans for travel during this period with their bariatric surgeon. Assessment: stable post op sleeve gastrectomy and hiatal hernia repair Discharge Date/Time: 01/12/22 09:55
[2022-01-11] MEDS: Famotidine/PF 20 MG/2 ML VIAL IVPUSH ×2 (11:02→19:40)
[2022-01-11] MEDS: Lactated Ringers 1,000 ML 100 ML IVCONT ×2 (11:13→19:48)
[2022-01-11 11:15] LABS: Hematocrit 40.7 % (37.0-47.0); Hemoglobin 13.8 g/dl (12.0-16.0)
[2022-01-11 11:34] LABS: Anion Gap 19 (12-20); Blood Urea Nitrogen 11 mg/dL (9-16); Calcium 9.2 mg/dL (8.4-10.2); Carbon Dioxide 20 mmol/L (22-29); Chloride 104 mmol/L (96-108); Creatinine Clr Calc Pharmacy 85.3; Estimated Glomerular Filt Rate > 60; Glucose Random 112 mg/dL (60-115); Potassium 4.3 mmol/L (3.3-5.1); Sodium 139 mmol/L (135-145)
[2022-01-11] MEDS: ceFAZolin Sodium/Dextrose,Iso 2 GM/50 ML PIGGYBACK IV (13:37)
[2022-01-11] MEDS: Acetaminophen 1,000 MG/100 ML PIGGYBACK 16.7 MG IV ×2 (14:25→19:40)
[2022-01-11] MEDS: 0.9 % Sodium Chloride Flush 3 ML SYRINGE IVFLUSH (19:40)
[2022-01-11] MEDS: ondansetron HCL 4 MG/2 ML VIAL IVPUSH (19:40)
[2022-01-11] MEDS: Metoclopramide HCl 10 MG/2 ML VIAL IVPUSH (21:50)
[2022-01-12] MEDS: Acetaminophen 1,000 MG/100 ML PIGGYBACK 16.7 MG IV ×2 (01:01→07:04)
[2022-01-12] MEDS: SUMAtriptan succinate 6 MG/0.5 ML VIAL SUBCUT (01:04)
[2022-01-12 02:59] VITALS: BP 151/94; PULSE 86; RESP 16; TEMP 36.1; O2SAT 93
[2022-01-12] MEDS: Levothyroxine Sodium 25 MCG TABLET PO (06:00)
[2022-01-12] MEDS: ondansetron HCL 4 MG/2 ML VIAL IVPUSH (06:01)
[2022-01-12 06:41] LABS: MANUAL DIFF FLAG NO
[2022-01-12 06:43] LABS: Basophils Percent Auto 0.1 % (0-2); Hematocrit 41.9 % (37.0-47.0); Hemoglobin 14.3 g/dl (12.0-16.0); Imm Gran Abs Auto 0.12 X10*3/uL (0.00-0.03); Lymphocytes Percent Auto 8.1 % (20-40); Mean Corpuscular HGB Conc 34.1 g/dl (31.0-35.0); Mean Corpuscular Volume 90.7 fL (80.0-98.0); Mean Platelet Volume 11.6 fL (9.4-12.3); Monocytes Absolute Auto 0.5 X10*3/uL (0.1-1.2); Monocytes Percent Auto 3.8 % (2-11); Neutrophils Absolute Auto 10.3 x10*3/uL (2.0-8.3); Platelet Count 256 X10*3/uL (160-400); Red Blood Count 4.62 X10*6/uL (4.20-5.50); Red Cell Distribution Width 12.3 % (11.0-16.0); White Blood Count 11.8 X10*3/uL (4.8-10.8)
[2022-01-12 06:59] LABS: Anion Gap 20 (12-20); Blood Urea Nitrogen 9 mg/dL (9-16); Calcium 9.7 mg/dL (8.4-10.2); Carbon Dioxide 21 mmol/L (22-29); Chloride 105 mmol/L (96-108); Creatinine Clr Calc Pharmacy 90.8; Estimated Glomerular Filt Rate > 60; Glucose Random 115 mg/dL (60-115); Potassium 4.5 mmol/L (3.3-5.1); Sodium 141 mmol/L (135-145)
--- NOTE | 2022-01-12 07:14 | PHA.MEDREC ---
Pharmacy Consult ? Medication Reconciliation Rn has completed the medication reconciliation, pharmacy reviewed.
[2022-01-12 07:50] VITALS: BP 111/57; PULSE 77; RESP 17; TEMP 35.9; O2SAT 92
[2022-01-12] MEDS: Famotidine/PF 20 MG/2 ML VIAL IVPUSH (09:22)
--- NOTE | 2022-01-12 14:37 | HO.POSTANES ---
Post Anesthesia Evaluation Post Anesthesia Evaluation Vital Signs: Vital Signs Temp Pulse Resp BP Pulse Ox O2 Del Method 01/12/22 07:13 Room Air 01/12/22 07:50 96.7 F L 77 17 111/57 L 92 Room Air 01/12/22 02:59 97 F 86 16 151/94 H 93 Room Air Anesthesia: General Endotracheal-GETA Mental Status: Awake Pain Control: Satisfactory Nausea/Vomiting: None Hydration: Adequate Anesthesia-Related Issues: No Anes. Related Issues
== END 2022-01-12 09:55 | disposition home or self-care (01) | DRG 403 ==
LOC: HO.SSSA 10:55 → HO.S3 11:18
PROVIDERS: Physician Assistant; Physician Assistant Surgical; Admitting Provider Surgery; PCP Family Medicine; Visit Provider Surgery
PROC: 0DB64Z3 Excision of Stomach, Percutaneous Endoscopic Approach, Vertical (ICD-10-PCS; CPT 43845; principal; 2022-01-11 07:30)
DX: E66.01 Morbid (severe) obesity due to excess calories (principal); K74.00 Hepatic fibrosis, unspecified; K44.0 Diaphragmatic hernia with obstruction, without gangrene; J45.909 Unspecified asthma, uncomplicated; E03.9 Hypothyroidism, unspecified; K76.0 Fatty (change of) liver, not elsewhere classified; G47.33 Obstructive sleep apnea (adult) (pediatric); Z68.41 Body mass index [BMI] 40.0-44.9, adult; Z98.51 Tubal ligation status; Z20.822 Contact with and (suspected) exposure to COVID-19; Z79.890 Hormone replacement therapy; Z79.899 Other long term (current) drug therapy
CPT/HCPCS: 36415; 80048; 80053; 80061; 83036; 83525; 84443; 85014; 85018; 85025; 85610; 85730; 86140; 86850; 86900; 86901; 87635; 88304; 88307; 88342; A4649; C9088; J0131; J0690; J1100; J1170; J2250; J2370; J2405; J2550; J2765; J2795; J3010; J3030

== ENCOUNTER → 2022-03-16 11:48 | Outpatient (BNVA) | payer MEDICAID, SELFPAY | PROVIDERS: PCP Family Medicine; Visit Provider Physician Assistant Surgical | DX: Z13.89 Encounter for screening for other disorder (principal) ==

== ENCOUNTER → 2022-05-27 08:34 | Outpatient (BNVA) | payer MEDICAID, SELFPAY | PROVIDERS: PCP Family Medicine; Visit Provider Physician Assistant Surgical | DX: E66.9 Obesity, unspecified (principal); E03.9 Hypothyroidism, unspecified; Z68.36 Body mass index [BMI] 36.0-36.9, adult | CPT/HCPCS: 99212 ==

== ENCOUNTER 2022-07-19 11:03 | Outpatient (REF) | payer MEDICAID, SELFPAY ==
[2022-07-19 11:50] LABS: MANUAL DIFF FLAG NO
[2022-07-19 12:07] LABS: Basophils Percent Auto 0.5 % (0-2); Eosinophils Absolute Auto 0.1 X10*3/uL (0.0-0.4); Eosinophils Percent Auto 2.2 % (0-4); Hematocrit 39.2 % (37.0-47.0); Imm Gran Abs Auto 0.01 X10*3/uL (0.00-0.03); Imm Gran Pct Auto 0.2 % (0.0-0.4); Lymphocytes Absolute Auto 2.2 X10*3/uL (1.2-4.9); Lymphocytes Percent Auto 39.3 % (20-40); Mean Corpuscular HGB Conc 33.2 g/dl (31.0-35.0); Mean Corpuscular Hemoglobin 31.5 pg (27.0-33.0); Mean Corpuscular Volume 94.9 fL (80.0-98.0); Mean Platelet Volume 11.2 fL (9.4-12.3); Monocytes Absolute Auto 0.4 X10*3/uL (0.1-1.2); Monocytes Percent Auto 7.9 % (2-11); Neutrophils Absolute Auto 2.7 x10*3/uL (2.0-8.3); Neutrophils Percent Auto 49.9 % (45-73); Platelet Count 283 X10*3/uL (160-400); Red Blood Count 4.13 X10*6/uL (4.20-5.50); Red Cell Distribution Width 12.6 % (11.0-16.0); White Blood Count 5.5 X10*3/uL (4.8-10.8)
[2022-07-19 12:21] LABS: Estimated Average Glucose 105 mg/dL; Hemoglobin A1c % 5.3 %
[2022-07-19 13:06] LABS: Anion Gap 8 (12-20); Blood Urea Nitrogen 14 mg/dL (9-16); C Reactive Protein 0.31 mg/dL (< or = 0.50); Calcium 9.4 mg/dL (8.4-10.2); Carbon Dioxide 30 mmol/L (22-29); Chloride 111 mmol/L (96-108); Cholesterol 218 mg/dL; Estimated Glomerular Filt Rate > 60; Glucose Random 91 mg/dL (60-115); HDL Cholesterol 51 mg/dL; Iron 70 mcg/dL (30-160); LDL Cholesterol Calculated 152 mg/dl; Percent Iron Saturation 29 % (15-50); Potassium 3.9 mmol/L (3.3-5.1); Sodium 145 mmol/L (135-145); Total Iron Binding Capacity 240 mcg/dL (228-428); Triglycerides 76 mg/dL; Unsaturated Iron Binding 170 ug/dL
[2022-07-19 13:25] LABS: Ferritin 156 ng/mL (10-250); Folate > 20.0 ng/mL (> or = 4.0); Insulin 13 uU/mL (2-29); TSH reflex Free T4 1.24 uIU/mL (0.32-4.0); Vitamin B12 454 pg/mL (200-900); Vitamin D 25-OH Total 43.7 ng/mL (>30)
[2022-07-21 17:03] LABS: Calcium (PTHI) 9.5 mg/dL (8.6-10.2); PTHI 52 pg/mL (16-77)
[2022-07-24 15:28] LABS: Zinc 58 mcg/dL (60-130)
[2022-07-25 06:32] LABS: Vitamin B1 8 nmol/L (8-30)
[2022-07-26 21:02] LABS: Vitamin A 49 mcg/dL (38-98)
== END 2022-07-19 11:04 | disposition home or self-care (01) ==
LOC: HO.LAB 11:03
PROVIDERS: PCP Family Medicine; Visit Provider Physician Assistant Surgical
DX: E66.9 Obesity, unspecified (principal); E53.8 Deficiency of other specified B group vitamins; E78.5 Hyperlipidemia, unspecified; R94.31 Abnormal electrocardiogram [ECG] [EKG]; Z90.3 Acquired absence of stomach [part of]
CPT/HCPCS: 36415; 80048; 80061; 82306; 82607; 82728; 82746; 83036; 83525; 83540; 83970; 84425; 84443; 84590; 84630; 85025; 86140; 99212

== ENCOUNTER 2022-11-25 08:45 | Outpatient (AMB) | payer MEDICAID, SELFPAY ==
[2022-11-25 07:59] VITALS: BMI 32.5
--- NOTE | 2022-11-25 07:59 | A.OFFVIS_ITS ---
Intake VS Expanded 11/25/22 07:59 Height 5 ft 4 in Weight 189 lb 2 oz BMI 32.5 Intake Visit Reasons: VIDEO PO LSG 01/11/22 Director Of Training Required: No Allergies No Known Allergies Allergy (Verified 07/19/22 11:05) Medication List - Last Reconciled 11/25/22 by IDRIS Jose [bariatric fusion MVI/ruben+D PO DAILY] levothyroxine 25 mcg PO DAILY HPI HPI Comments History of Present Illness Details This?a?47?yo female who is s/p LSG with hiatal hernia repair on?01/11/[address] Arango. Presents for 10.5 month post op visit. Weight today is 189.2 pounds, with a BMI of 32.5.? There has been a 70.4 pound weight loss,(initial w eight 259.6 pounds) since starting the program on 10/07/21 reflecting a 27.1% total body weight loss and a weight loss of 49 pounds since surgery (operative weight 238.2 pounds) reflecting a 20.5% TBWL since surgery.? Reports infrequent but normal bowel movements every 1-2 days and uses stool softeners regularly.? She states money has been tight and she has stopped the celebrate MVI and Ruben+D.? She is taking mutifusion MVI 2 daily and viactiv +D 1 per day.? She ahs been seeing a specialist in [place] for her left eyeball swelling. She has been intermittently on Prednisone. She experiences migraine with this. Previous meal plan includes: RTD Premier Protein shake skip 1 meal 6 forks protein and 6 forks veg/s alad. 60 oz water? ?Exercise routine includes: walking at work (working 2 jobs)? [facility] Medical History History of COVID-19 Hypothyroid Asthma ARNIE (obstructive sleep apnea) Hx of tendinitis Surgical History Status post debridement of bone spur History of endometrial ablation Hx of tubal ligation Hx of carpal tunnel repair Hx of section Family History Mother COPD (chronic obstructive pulmonary disease) Asthma Hypertension Father No problems noted. Son No problems noted. Son No problems noted. Son No problems noted. Daughter Asthma Daughter Cancer Thyroid condition Daughter No problems noted. Social History Are you a primary palliative care specialist to a significant other at home: No Do you presently have visiting nurse or other home services: No Alcohol intake: former Patient Tobacco Use Status: Never used Tobacco Review of Systems Const All systems reviewed & are unremarkable except as noted in HPI and below Assessment & Plan Assessment & Plan (1) Obesity: Code(s): E66.9 - Obesity, unspecified Plan: Encouraged to have another RTD shake midday, decrease water to 64-80 oz daily Try to incorporate cardio exercises when possible (working 2 jobs w long hours) Continue to text me weekly w weight measurements and if any questions RTC January for 1 year post op and check labs. Telehealth Telehealth Location of provider rendering services: practice address Location of patient: other Patient Identification confirmed using: Name, : Yes Telehealth method: video Patient verbally consented to treatment: Yes Patient verbally consented to billing insurance company: Yes Patient informed of any privacy concerns related to visit: Yes Minutes spent on Phone/Video with Pt.: 15 Coding Level of Care Code Tele Est Pt Level 3 (97490) Diagnoses Obesity E66.9 Time Spent (min) 25
== END 2022-11-25 08:52 | disposition home or self-care (01) ==
LOC: HO.HBS 08:45
PROVIDERS: PCP Family Medicine; Visit Provider Physician Assistant Surgical
DX: E66.9 Obesity, unspecified (principal)
CPT/HCPCS: 99213

== ENCOUNTER → 2022-11-25 08:45 | Outpatient (BNVA) | payer MEDICAID, SELFPAY | PROVIDERS: PCP Family Medicine; Visit Provider Physician Assistant Surgical ==

== ENCOUNTER 2023-01-24 10:14 | Outpatient (AMB) | payer MEDICAID, SELFPAY ==
--- NOTE | 2023-01-24 10:16 | A.OFFVIS_ITS ---
Intake VS Expanded 01/24/23 10:26 BP 158/90 H Blood Pressure Location Rt brachial Blood Pressure Position Sitting Pulse 66 Pulse Source Pulse Oximeter Temp 97.2 F Temperature Source Temporal Artery Scan Pulse Oximetry 97 Oxygen Delivery Method Room Air Height 5 ft 4 in Weight 185 lb 3.2 oz BMI 31.8 Body Fat % 36.9 Body Fat Mass 68.4 Fat Free Mass 116.8 Visceral Fat Rating 8.0 Body Water % 45.0 Body Water Mass 83.4 Muscle Mass/Score 110.8 Basal Metabolic Rate/Score 1,596 Intake Visit Reasons: (ov) PO LSG 01/11/22 Allergies No Known Allergies Allergy (Verified 01/24/23 10:21) HPI HPI Comments History of Present Illness Details This?a?47?yo female who is s/p LSG with hiatal hernia repair on?01/11/[address] Arango. Presents for 1 year post op visit. Weight today is 185.2 pounds, with a BMI of 31.8.? There has been a 74.4 pound weight loss,(initial weight 259.6 pounds) since starting the program on 10/07/21 reflecting a 28.6% total body weight loss and a weight loss of 53 pounds since surgery (operative weight 238.2 pounds) reflecting a 22.2% TBWL since surgery.? Reports infrequent but normal bowel movements every 1-2 days and uses stool softeners regularly.? She states money has been tight and she has stopped the celebrate MVI and Ruben+D.? She is taking mutifusion MVI 2 daily and viactiv +D 1 per day.? She has been seeing a specialist in [place] for her left eyeball swelling. She has been intermittently on Prednisone. She has had no trouble with her eyes in a couple of months She also states she has not communicated since november due to being busy . Now back down to 1 job Previous meal plan includes: Premier Protein shake, 3 scoops in 12 oz almond milk 2-3 slices freedman 1 meal 6 forks protein and 6 forks veg/s alad. 96 oz water?drinking 8 oz mt dew Exercise routine includes: treadmill, 6 x per week, 300-500 calories ? Any post op complications: none ARNIE: resolved DM: never HTN: continues Hyperlipidemia: improved GERD:?0-5 scale ??0 = no symptoms ??1 = symptoms noticeable but not bothersome 2 =symptoms bothersome but not daily ? 3 = symptoms bothersome and daily 4 = symptoms affect daily activities 5 = symptoms are incapacitating, unable to do daily activities ? How bad is the heartburn: 0 ? Heartburn while lying down: 0 ? Heartburn when standing up: 0 ? Heartburn after meals: 0 ? Does heartburn change your diet: 0 ? Does heartburn wake you up from sleep: 0 ? Do you have difficulty swallowin ? Do you have pain with swallowin ? If you take medicine for your reflux, does this affect your daily life: 0 Satisfaction with present condition - satisfied or not satisfied: chrissy [facility] Medical History History of COVID-19 Hypothyroid Asthma ARNIE (obstructive sleep apnea) Hx of tendinitis Surgical History Status post debridement of bone spur History of endometrial ablation Hx of tubal ligation Hx of carpal tunnel repair Hx of section Family History Mother COPD (chronic obstructive pulmonary disease) Asthma Hypertension Father No problems noted. Son No problems noted. Son No problems noted. Son No problems noted. Daughter Asthma Daughter Cancer Thyroid condition Daughter No problems noted. Social History Are you a primary palliative care coordinator to a significant other at home: No Do you presently have visiting nurse or other home services: No Alcohol intake: former Patient Tobacco Use Status: Never used Tobacco Review of Systems Const All systems reviewed & are unremarkable except as noted in HPI and below Physical Exam Const General: cooperative and no acute distress Orientation/consciousness: patient oriented x3 Resp Effort & Inspection: normal respiratory effort Auscultation: clear to auscultation bilaterally Cardio Rate: regular rate Rhythm: regular rhythm GI Inspection: Yes normal to inspection and Yes incision (well healed) Palpation (GI): Soft to palpation and no masses Neuro General: patient oriented x3 Assessment & Plan Assessment & Plan (1) Status post sleeve gastrectomy: Code(s): Z90.3 - Acquired absence of stomach [part of] Plan: change meal plan to : Premier Protein shake, 2 scoops in 8 oz almond milk ZP bar and apple or berries 1 meal 6 forks protein and 6 forks veg/salad. 96 oz water?drinking no more soda check yearly labs continue MVI and Ruben+D RTC 3 weeks Orders: Orders Lipid Panel Today E78.5 - Hyperlipidemia, unspecified, K76.0 - Fatty (change of) liver, not elsewhere classified, Z90.3 - Acquired absence of stomach [part of] Vitamin B12 and Folate Today E78.5 - Hyperlipidemia, unspecified, K76.0 - Fatty (change of) liver, not elsewhere classified, Z90.3 - Acquired absence of stomach [part of] Vitamin B1 Today E78.5 - Hyperlipidemia, unspecified, K76.0 - Fatty (change of) liver, not elsewhere classified, Z90.3 - Acquired absence of stomach [part of] PTHI Today E78.5 - Hyperlipidemia, unspecified, K76.0 - Fatty (change of) liver, not elsewhere classified, Z90.3 - Acquired absence of stomach [part of] Hemoglobin A1c Today E78.5 - Hyperlipidemia, unspecified, K76.0 - Fatty (change of) liver, not elsewhere classified, Z90.3 - Acquired absence of stomach [part of] Insulin Today E78.5 - Hyperlipidemia, unspecified, K76.0 - Fatty (change of) liver, not elsewhere classified, Z90.3 - Acquired absence of stomach [part of] IRON PROFILE Today E78.5 - Hyperlipidemia, unspecified, K76.0 - Fatty (change of) liver, not elsewhere classified, Z90.3 - Acquired absence of stomach [part of] Complete Blood Count Auto Diff Today E78.5 - Hyperlipidemia, unspecified, K76.0 - Fatty (change of) liver, not elsewhere classified, Z90.3 - Acquired absence of stomach [part of] Zinc Today E78.5 - Hyperlipidemia, unspecified, K76.0 - Fatty (change of) liver, not elsewhere classified, Z90.3 - Acquired absence of stomach [part of] Vitamin A Today E78.5 - Hyperlipidemia, unspecified, K76.0 - Fatty (change of) liver, not elsewhere classified, Z90.3 - Acquired absence of stomach [part of] C Reactive Protein Today E78.5 - Hyperlipidemia, unspecified, K76.0 - Fatty (change of) liver, not elsewhere classified, Z90.3 - Acquired absence of stomach [part of] Ferritin Today E78.5 - Hyperlipidemia, unspecified, K76.0 - Fatty (change of) liver, not elsewhere classified, Z90.3 - Acquired absence of stomach [part of] TSH reflex Free T4 Today E78.5 - Hyperlipidemia, unspecified, K76.0 - Fatty (change of) liver, not elsewhere classified, Z90.3 - Acquired absence of stomach [part of] Vitamin D 25-OH Total Today E78.5 - Hyperlipidemia, unspecified, K76.0 - Fatty (change of) liver, not elsewhere classified, Z90.3 - Acquired absence of stomach [part of] Basic Metabolic Panel Today E78.5 - Hyperlipidemia, unspecified, K76.0 - Fatty (change of) liver, not elsewhere classified, Z90.3 - Acquired absence of stomach [part of] Coding Level of Care Code Est Pt Level 4 (70896) Diagnoses Status post sleeve gastrectomy Z90.3
[2023-01-24 10:26] VITALS: BP 158/90; PULSE 66; TEMP 36.2; O2SAT 97; BMI 31.8
== END 2023-01-24 10:42 | disposition home or self-care (01) ==
PROVIDERS: PCP Family Medicine; Visit Provider Physician Assistant Surgical
DX: E66.09 Other obesity due to excess calories (principal); Z68.31 Body mass index [BMI] 31.0-31.9, adult; Z90.3 Acquired absence of stomach [part of]; Z98.84 Bariatric surgery status
CPT/HCPCS: 99214

== ENCOUNTER → 2023-01-24 10:14 | Outpatient (BNVA) | payer MEDICAID, SELFPAY | PROVIDERS: PCP Family Medicine; Visit Provider Physician Assistant Surgical | DX: Z90.3 Acquired absence of stomach [part of] (principal) | CPT/HCPCS: 99212 ==